=== PATIENT | female | born 1985 | race Caucasian/White ===

== ENCOUNTER 2022-09-17 10:12 | Emergency (ER) | payer OTHER ==
[2022-09-17 10:32] VITALS: RESP 18
[2022-09-17] MEDS ORDERED: FLUORESCEIN STRIPS 1 MG STRIP RIGHT EYE ONE (11:05)
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
[2022-09-17 12:33] VITALS: BP 105/56; PULSE 61; TEMP 98
== END 2022-09-17 12:43 | disposition home or self-care (01) ==
LOC: EC 10:12
DX: H10.9 Unspecified conjunctivitis (principal); F17.200 Nicotine dependence, unspecified, uncomplicated; F14.90 Cocaine use, unspecified, uncomplicated
CPT/HCPCS: 99283